=== PATIENT | female | born 1975 | race Caucasian/White ===

== ENCOUNTER 2019-05-14 13:39 | Emergency (ER) | payer BC ==
[~2019-05-14] VITALS: Ht 175.3 cm; Wt 63.5 kg
[2019-05-14] MEDS ORDERED: MULT1TAB73 PO (14:08)
[2019-05-14] MEDS ORDERED: DIAZ10TA4 PO (14:08)
[2019-05-14] MEDS ORDERED: GABA-534 PO (14:08)
[2019-05-14] MEDS ORDERED: TRAZ-214 PO (14:08)
[2019-05-14] MEDS ORDERED: ATOM80CA PO (14:08)
[2019-05-14] MEDS ORDERED: CLON0.1T PO (14:08)
[2019-05-14] MEDS ORDERED: FOLI1TAB16 PO (14:08)
[2019-05-14] MEDS ORDERED: DIAZ5TAB4 PO (14:08)
[2019-05-14] MEDS ORDERED: THIA100T70 PO (14:08)
[2019-05-14] MEDS ORDERED: ESCI20TA PO (14:08)
[2019-05-14] MEDS ORDERED: LAMO100T2 PO (14:08)
[2019-05-14] MEDS ORDERED: IV NORMAL SALINE 1000 ML BAG IV ONE (14:15)
[2019-05-14 14:39] LABS: BASOPHILS # (AUTO) 0.1 K/uL (0.0-8.0); BASOPHILS % (AUTO) 0.8 % (0.0-2.0); EOSINOPHILS % (AUTO) 0.6 % (0.0-7.0); HEMATOCRIT 47.5 % (31.2-41.9); HEMOGLOBIN 15.5 g/dL (10.9-14.3); LYMPHOCYTES % (AUTO) 27.7 % (20.5-51.5); MEAN CORPUSCULAR HEMOGLOBIN 29.7 uug (24.7-32.8); MEAN CORPUSCULAR HGB CONC 33 g/dL (32.3-35.6); MEAN CORPUSCULAR VOLUME 91.1 fL (75.5-95.3); MONOCYTES # (AUTO) 0.5 K/uL (2.0-10.0); MONOCYTES % (AUTO) 6.7 % (0.0-11.0); NEUTROPHILS # (AUTO) 4.6 K/uL (1.8-8.9); NEUTROPHILS % (AUTO) 64.2 % (38.5-71.5); PLATELET COUNT (AUTO) 285 K/uL (179-408); RED BLOOD CELL COUNT(AUTO) 5.22 MIL/uL (3.63-4.92); WHITE BLOOD COUNT (AUTO) 7.2 K/uL (3.8-11.8)
[2019-05-14 14:50] LABS: CARBON DIOXIDE 27 mmol/L (21-32); CHLORIDE 100 mmol/L (98-107); CREATININE 0.8 mg/dL (0.6-1.3); GLUCOSE 125 mg/dL (74-106); POTASSIUM 4.3 mmol/L (3.5-5.1); UREA NITROGEN, BLOOD 9 mg/dL (7-18)
[2019-05-14 14:55] LABS: ALANINE AMINOTRANSFERASE 30 U/L (14-59); ALKALINE PHOSPHATASE 79 U/L (50-136); ASPARTATE AMINOTRANSFERASE 17 U/L (15-37); BILIRUBIN,DIRECT 0.1 mg/dL (0.0-0.2); BILIRUBIN,TOTAL 0.4 mg/dL (0.2-1.0); LIPASE 82 U/L (73-393)
[2019-05-14 16:38] VITALS: BP 112/76
--- NOTE | 2019-05-14 16:40 | NUR ---
FIRST CONTACT WITH PATIENT FOR DC. Patient discharged to home in stable conditon. Written and verbal after care instructions given. Patient verbalizes understanding of instructions.
== END 2019-05-14 16:55 | disposition home or self-care (01) ==
LOC: ER 13:39
DX: R10.32 Left lower quadrant pain (principal); R11.0 Nausea; R51 Headache; M79.10 Myalgia, unspecified site; R61 Generalized hyperhidrosis; Z88.0 Allergy status to penicillin; Z79.899 Other long term (current) drug therapy
CPT/HCPCS: 36415; 74021; 83605; 83690; 85025; 93005; A4663; J7030